=== PATIENT | female | born 1960 | race African-American/Black ===

== ENCOUNTER 2020-07-20 20:03 | Emergency (ER) | payer MEDICAID ==
[~2020-07-20] VITALS: Ht 167.6 cm; Wt 93.0 kg
[2020-07-20] MEDS ORDERED: ACETAMINOPHEN 325MG TABLET PO ONE (21:30)
[2020-07-20 22:40] VITALS: BP 164/74
== END 2020-07-20 22:40 | disposition home or self-care (01) ==
LOC: ER 20:03
DX: S09.8XXA Other specified injuries of head, initial encounter (principal); W01.0XXA Fall on same level from slipping, tripping and stumbling without subsequent striking against object, initial encounter; Y93.89 Activity, other specified; Y92.89 Other specified places as the place of occurrence of the external cause; Y99.8 Other external cause status; E11.9 Type 2 diabetes mellitus without complications; I10 Essential (primary) hypertension; Z90.710 Acquired absence of both cervix and uterus; Z88.0 Allergy status to penicillin
CPT/HCPCS: 73562; 93005; 99285